=== PATIENT | male | born 1985 | race Caucasian/White ===

== ENCOUNTER 2023-10-14 14:38 | Emergency (ER) | payer MEDICAID ==
[~2023-10-14] VITALS: Ht 167.6 cm; Wt 77.1 kg
[2023-10-14 14:54] VITALS: BP 118/69; TEMP 98.1
[2023-10-14] MEDS ORDERED: FLUORESCEIN SODIUM OPHTH 1 EA STRIP ONE ×2 (16:45→16:48)
[2023-10-14] MEDS ORDERED: TETRAcaine 5 ML BOTTLE ONE (16:48)
[2023-10-14] MEDS: FLUORESCEIN SODIUM OPHTH 1 EA STRIP OP ONE (16:51)
[2023-10-14] MEDS: TETRACAINE HCL 0.5% OPHTALMIC 15 ML BOTTLE OP ONE (16:51)
[2023-10-14] MEDS ORDERED: IBUP-1955 PO (17:43)
[2023-10-14] MEDS ORDERED: ACET-2605 PO (17:43)
[2023-10-14] MEDS ORDERED: SULF15DR6 RIGHTEYE (17:43)
[2023-10-14 18:03] VITALS: O2SAT 97
== END 2023-10-14 18:05 | disposition home or self-care (01) ==
LOC: ER 14:53
DX: S63.696A Other sprain of right little finger, initial encounter (principal); S05.01XA Injury of conjunctiva and corneal abrasion without foreign body, right eye, initial encounter; Y04.0XXA Assault by unarmed brawl or fight, initial encounter; Y93.89 Activity, other specified; Y92.89 Other specified places as the place of occurrence of the external cause; Y99.8 Other external cause status
CPT/HCPCS: 73140-TC